=== PATIENT | female | born 1940 | race Caucasian/White ===

== ENCOUNTER 2021-02-12 12:32 | Emergency (ER) | payer MEDICARE, SELFPAY ==
--- NOTE | ~2021-02-12 | XR_ITS ---
EXAMINATION: XR shoulder RT min 2V EXAM DATE: 02/12/2021 13:29 INDICATION: Fall, head injury. Right shoulder pain, initial encounter. TECHNIQUE: The following right shoulder projections obtained: frontal projection with internal rotati on, frontal projection with external rotation, Grashey, and scapular Y view (4+ views). There is no prior study for comparison. FINDINGS: No evidence of right shoulder rotator cuff calcific tendinosis. 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 Sternotomy wi res. Right lung suture material probably prior biopsy. There are no acute fractures or dislocations i dentified. There is no subcutaneous gas. The soft tissue is unremarkable. There are no radiopaque foreign bodies. IMPRESSION: 1. Right shoulder exam without acute osseous findings. 2. Mild to moderate osteoarthritis. Reviewed, dictated and finalized at location A.
--- NOTE | ~2021-02-12 | XR_ITS ---
EXAMINATION: XR wrist RT 2V EXAM DATE: 02/12/2021 13:29 INDICATION: Initial encounter following injury, with pain of the right wrist. TECHNIQUE: Frontal and lateral projections of the right wrist. There is no prior study for comparis on. FINDINGS: There is mild ulnar minus variance. There are no acute right wrist fractures or dislocatio ns identified. There is no subcutaneous gas. There are arterial calcifications, arteriosclerosis. There is mild polyarticular and and wrist primary osteoarthritis. IMPRESSION: 1. XR wrist RT 2V exam without acute osseous findings. Reviewed, dictated and finalized at location A.
--- NOTE | ~2021-02-12 | CT_ITS ---
EXAMINATION: CT brain wo con EXAM DATE: 02/12/2021 13:20 INDICATION: Fall, frontal head injury. TECHNIQUE: Spiral CT of the head was performed without contrast. Axial, coronal and sagittal images were reviewed. The dose-length product (DLP) for this examination was 605.33 mGy-cm. The exposure w as tailored according to patient size, and iterative reconstruction (ASIR) was used as additional dos e reduction technique. There is no prior study for comparison. FINDINGS: There is no acute intraparenchymal hemorrhage. No evidence of intraparenchymal brain mass lesion. No evidence of acute infarction. Please note that initial head CT has limited sensitivity f or small or acute infarctions. There is mild periventricular and subcortical hypodensity, nonspecific but probably related to small vessel ischemic disease. There is moderate prominence of the sulci a nd ventricles related to cerebral atrophy. There is intracranial carotid arteriosclerosis. There a re no extra-axial collections. There is no mass effect or midline shift. Patient has had bilateral ocular lens surgery. Large left frontal scalp hematoma. The visualized sinuses and mastoid air cells are well aerated. IMPRESSION: 1. No acute intracranial findings. 2. Chronic age related findings. 3. Large left frontal scalp hematoma. Reviewed, dictated and finalized at location A.
--- NOTE | ~2021-02-12 | CT_ITS ---
EXAMINATION: CT facial & cervical spine wo EXAM DATE: 02/12/2021 13:20 INDICATION: Left frontal head injury. TECHNIQUE: Spiral CT of the facial bones was acquired in the axial plane. Coronal reformatted images were also reviewed. Spiral CT of the cervical spine was performed without contrast. Axial images we re reviewed. Coronal and sagittal reformatted images were also reviewed. The dose-length product (DL P) for this examination was 178.81 mGy-cm. The exposure was tailored according to patient size, and iterative reconstruction (ASIR) was used as additional dose reduction technique. There is no prior s tudy for comparison. FINDINGS: FACIAL CT: There are no displaced acute nasal bone fractures. The mandible, sinuses and orbits are i ntact. The orbits, globes and extraocular muscles are unremarkable. Bilateral cataract surgery. Mod erate right temporomandibular joint osteoarthritis. The visualized sinuses and mastoid air cells are well aerated. Large left frontal scalp contusion/hematoma. CERVICAL CT: There is no evidence of acute cervical fracture. The odontoid process is intact. Pre-d ens space is normal. Prevertebral soft tissue is normal. There are no soft tissue abnormalities mattie ntified. There is no disc space widening or traumatic vertebral body subluxation suspected. Moderat e to severe mid and lower cervical disc disease, mild to moderate arthropathy. A detailed level by jia segovia evaluation of spondylosis can be added as addendum if requested. IMPRESSION: 1. No acute facial or cervical fracture. 2. Large left frontal scalp contusion/hematoma. 3. Cervical spondylosis. Reviewed, dictated and finalized at location A.
[2021-02-12 12:35] VITALS: BP 146/70; PULSE 78; RESP 16; TEMP 36.6; O2SAT 99
--- NOTE | 2021-02-12 12:53 | ED.FALL ---
HPI - Fall General Chief Complaint: Fall Stated Complaint: FALL, HEAD INJURY Time Seen by Provider: 02/12/21 12:41 History of Present Illness HPI Narrative: 80 yo female w/ h/o CAD, HTN, DM presents to the ED after a fall. She tripped on a curb in a parking lot. She Struck her left forehead on the ground, in addition to her right arm and shoulder. She has significant pain and swelling around the left eyebrow region. No LOC, weakness, confusion, nausea. She is on plavix. She also has moderate pain in the right shoulder and wrist. Full ROM. No weakness, numbness, wound. Related Data Home Medications Medication Instructions Recorded Confirmed clopidogrel [Plavix] 75 mg PO DAILY 08/18/19 08/18/19 cyanocobalamin (vitamin B-12) 1,000 mcg PO DAILY 08/18/19 08/18/19 [Vitamin B-12] glipizide [Glucotrol] 5 mg PO DAILY 08/18/19 08/18/19 insulin glargine [Lantus Solostar 20 unit SUBCUT AC 08/18/19 08/18/19 U-100 Insulin] isosorbide mononitrate 30 mg PO DAILY 08/18/19 08/18/19 levothyroxine [Synthroid] 100 mcg PO DAILY 08/18/19 08/18/19 nifedipine [Procardia XL] 30 mg PO DAILY 08/18/19 08/18/19 potassium chloride [Klor-Con M20] 20 meq PO DAILY 08/18/19 08/18/19 simvastatin [Zocor] 40 mg PO DAILY 08/18/19 08/18/19 valsartan-hydrochlorothiazide 160 tablet PO DAILY 08/18/19 08/18/19 [Diovan HCT] zolpidem [Ambien] 10 mg PO HS 08/18/19 08/18/19 aspirin [Adult Aspirin] 81 mg PO DAILY 02/12/21 metoprolol succinate 25 mg PO DAILY 02/12/21 psyllium [Metamucil] packet 02/12/21 vitamin E 02/12/21 Allergies Allergy/AdvReac Type Severity Reaction Status Date / Time No Known Allergies Allergy Mild Unverified 02/12/21 12:50 Review of Systems Review of Systems: All systems reviewed & are unremarkable except as noted in HPI and below Constitutional: Constitutional: Denies chills, Denies fever(s) and Denies weakness Eyes: Eyes: Reports no additional eye complaints and Denies change in vision ENT: Denies dizziness Cardiovascular: Cardiovascular: Denies chest pain Respiratory: Respiratory: Denies dyspnea Gastrointestinal: Gastrointestinal: Denies abdominal pain, Denies nausea and Denies vomiting Genitourinary: Genitourinary: Reports no additional female genitourinary complaints Musculoskeletal: Musculoskeletal: Denies back pain Neurologic: Denies confusion, Denies dizziness, Denies syncope, Reports headache(s), Denies numbness and Denies weakness [facility] Past Medical History Medical History CAD (coronary artery disease) Diabetes HTN (hypertension) Hyperlipidemia Surgical History Surgical History History of coronary artery stent placement Hx of coronary artery bypass graft Social History Social History Smoking status: Never smoker Alcohol intake: never Gender identity (if verbalized by the patient): Female Exam Const: General: healthy appearing, no acute distress and alert Orientation/consciousness: patient oriented x3 HENMT: Head: hematoma (left eyebrow and temporal region) Ears: external ears normal, TM's normal bilaterally and EAC's normal Face and sinus: sinuses nontender Eyes: Pupils: Equal, round and reactive pupils present EOM: EOMs intact bilaterally Neck: Neck: normal visual inspection and no lymphadenopathy Chest: Chest palpation & inspection: no tenderness Resp: Effort & Inspection: normal respiratory effort Auscultation: clear to auscultation bilaterally, no rales, no rhonchi and no wheezes Cardio: Jugular venous distension: no JVD Rate: regular rate Rhythm: regular rhythm Heart sounds: no murmurs GI: Inspection: non-distended GI Palp: Yes Soft to palpation and No Tenderness to palpation present (GI) Skin: General skin exam: normal color Neuro: General: patient oriented x3 and moves all extremities Speech: alie
[2021-02-12] MEDS: MORPHINE SULFATE (*CRX) 2 MG/ML INJ IV PUSH (13:04)
[2021-02-12 13:09] LABS: Basophils Absolute Auto 0.1 K/mm3 (0.0-0.1); Basophils Percent Auto 0.7 % (0.2-1.2); Eosinophils Absolute Auto 0.2 K/mm3 (0-0.3); Eosinophils Percent Auto 2.1 % (0-4.4); Hematocrit 35.6 % (37.0-47.0); Hemoglobin 11.6 g/dL (12.0-15.0); Immature Granulocyte Absolute 0.02 K/mm3 (0.00-0.031); Immature Granulocyte Percent A 0.3 % (0-0.5); Lymphocytes Absolute Auto 3.13 K/mm3 (0.9-3.2); Lymphocytes Percent Auto 40.8 % (18.3-44.2); Mean Corpuscular HGB Conc 32.6 g/dl (32-36); Mean Corpuscular Hemoglobin 30.6 pg (26-34); Mean Corpuscular Volume 93.9 fl (80-100); Mean Platelet Volume 8.7 fl (7.4-10.4); Monocytes Absolute Auto 0.7 K/mm3 (0.1-0.6); Monocytes Percent Auto 9.5 % (2.6-8.5); Neutrophils Absolute Auto 3.6 K/mm3 (1.3-6.7); Neutrophils Percent Auto 46.6 % (45.5-73.1); Platelet Count Result 211 k/mm3 (150-375); Red Blood Count 3.79 M/mm3 (4.2-5.4); Red Cell Distribution Width 12.8 % (11.5-14.5); White Blood Count 7.7 K/mm3 (4.5-10.0)
[2021-02-12 13:19] LABS: Prothrombin Time 13.3 Seconds (11.1-14.7)
[2021-02-12 13:21] LABS: Anion Gap 11 mmol/L (8-16); Blood Urea Nitrogen 13 mg/dL (7-17); Calcium 9.5 mg/dL (8.4-10.2); Carbon Dioxide 24 mmol/L (22-30); Chloride 104 mmol/L (98-107); Estimated CRCL calculation 49 ml/min; Estimated Glomerular Filt Rate > 60; Glucose 105 mg/dL (65-105); Potassium 3.8 mmol/L (3.4-5.0); Sodium 139 mmol/L (137-145)
[2021-02-12 14:39] VITALS: BP 142/64; PULSE 76; RESP 18; O2SAT 100
== END 2021-02-12 14:42 | disposition home or self-care (01) ==
PROVIDERS: Emergency Provider Emergency Medicine
DX: S00.12XA Contusion of left eyelid and periocular area, initial encounter (principal); I25.10 Atherosclerotic heart disease of native coronary artery without angina pectoris; E11.9 Type 2 diabetes mellitus without complications; I10 Essential (primary) hypertension; E78.5 Hyperlipidemia, unspecified; Z79.4 Long term (current) use of insulin; Z79.82 Long term (current) use of aspirin; Z95.1 Presence of aortocoronary bypass graft; Z95.5 Presence of coronary angioplasty implant and graft; M47.812 Spondylosis without myelopathy or radiculopathy, cervical region; M19.011 Primary osteoarthritis, right shoulder; W10.1XXA Fall (on)(from) sidewalk curb, initial encounter
CPT/HCPCS: 36415; 70450; 70486; 72125; 73030; 73100; 80048; 85025; 85610; 85730; 96374; 99284; J2270